=== PATIENT | female | born 1975 | race Caucasian/White ===

== ENCOUNTER 2018-09-10 14:56 | Emergency (ER) | payer SELFPAY ==
[~2018-09-10] VITALS: Ht 162.6 cm; Wt 108.9 kg
[2018-09-10 15:00] VITALS: BP_SYST 163
--- NOTE | 2018-09-10 15:08 | NUR ---
Patient to ER bed 07 to gown for evaluation. Side rails up.
--- NOTE | 2018-09-10 15:13 | NUR ---
Patient arrived via POV, AAOx4, and ambulatory with steady gait. Patient c/c of vaginal bleeding. Onset was August 17, light and scant bleeding. Worsening over the past few weeks. Today she has been changing tampon every 5-10 minutes. No dizziness or faint feelings noted. Patient states she is between insurances as her has recently changed jobs. Per patient last time she had sex was May 08. States "no feelings of " states no breast tenderness, nausea, vomiting. Will continue to follow up and monitor.
--- NOTE | 2018-09-10 15:15 | NUR ---
ER at bedside examining patient.
--- NOTE | 2018-09-10 15:35 | NUR ---
Lab at bedside for blood draw. Will follow up regarding results.
--- NOTE | 2018-09-10 15:40 | NUR ---
Urine specimen collected and analyzed in ER. Results given to ER .
--- NOTE | 2018-09-10 15:49 | NUR ---
Attempted Urine dip x3, unable to process per machine. Informed MD, specimen sent to lab.
[2018-09-10 15:55] LABS: BASOPHILS # (AUTO) 0.1 K/uL (0.0-0.2); BASOPHILS % (AUTO) 0.5 % (0.0-2.0); EOSINOPHILS # (AUTO) 0.4 K/uL (0.0-0.4); EOSINOPHILS % (AUTO) 2.9 % (0.0-4.0); HEMATOCRIT 37.1 % (36-48); HEMOGLOBIN 12.5 g/dL (12.0-16.0); LYMPHOCYTES # (AUTO) 2.9 K/uL (1.0-5.5); LYMPHOCYTES % (AUTO) 19.6 % (20.5-51.5); MEAN CORPUSCULAR HEMOGLOBIN 29 pg (27-31); MEAN CORPUSCULAR HGB CONC 34 % (32-36); MEAN CORPUSCULAR VOLUME 85 fL (79.0-98.0); MONOCYTES # (AUTO) 0.8 K/uL (0.0-1.0); MONOCYTES % (AUTO) 5.3 % (1.7-9.3); NEUTROPHILS # (AUTO) 10.6 K/uL (1.8-7.7); NEUTROPHILS % (AUTO) 71.7 % (40.0-70.0); PLATELET COUNT (AUTO) 356 K/uL (130-430); RED BLOOD CELL COUNT(AUTO) 4.35 MIL/uL (4.2-6.2); RED CELL DISTRIBUTION WIDTH 13.9 % (9.0-15.0); WHITE BLOOD COUNT (AUTO) 14.8 K/uL (4.8-10.8)
[2018-09-10 16:02] LABS: PROTHROMBIN TIME 9.8 SECS (9.5-12.5)
[2018-09-10 17:07] LABS: BILIRUBIN,URINE NEGATIVE (NEGATIVE); BLOOD, URINE 3+ (NEGATIVE); CLARITY/URINE HAZY (CLEAR); COLOR,URINE RED (YELLOW); GLUCOSE,URINE NEGATIVE (NEGATIVE); KETONES,URINE TRACE (NEGATIVE); LEUKOCYTE ESTERASE ,URINE TRACE (NEGATIVE); NITRITE, URINE POSITIVE (NEGATIVE); PH,URINE 6.5 (5.0-8.0); PROTEIN URINE 2+ (NEGATIVE)
[2018-09-10 17:20] LABS: BACTERIA,URINE FEW /HPF (None Seen); MUCUS,URINE None Seen /LPF (None Seen); RBC,URINE >100 /HPF (0-3); WBC,URINE 0-3 /HPF (0-3)
[2018-09-10 17:28] VITALS: BP_SYST 151
--- NOTE | 2018-09-10 17:28 | NUR ---
Patient given written and verbal discharge instructions and verbalizes understanding. ER MD discussed with patient the results and treatment provided. Patient in stable condition. ID arm band removed. Rx of Macrobid and Provera given. Patient educated on pain management and to follow up with PMD. Pain Scale 0/10. Opportunity for questions provided and answered. Medication side effect fact sheet provided.
== END 2018-09-10 17:28 | disposition home or self-care (01) ==
LOC: SED 14:56
DX: N93.8 Other specified abnormal uterine and vaginal bleeding (principal); N39.0 Urinary tract infection, site not specified; R03.0 Elevated blood-pressure reading, without diagnosis of hypertension
CPT/HCPCS: 36415; 76856-TC; 81000-TC; 81025; 85025; 85610-TC; 99284